=== PATIENT | female | born 1995 | race Caucasian/White ===

== ENCOUNTER 2020-04-23 13:44 | Emergency (ER) | payer OTHER ==
[2020-04-23 14:19] VITALS: BMI 29.2
[2020-04-23 15:23] LABS: BASO % 0.3 % (0-2.0); EOS % 0.3 % (0-4.5); HEMATOCRIT 35.4 % (32.4-45.2); HEMOGLOBIN 11.8 GM/dL (10.7-15.3); LYMPH % 31.6 % (8-40); MCH 27.8 pg (25.7-33.7); MCHC 33.3 g/dl (32.0-36.0); MEAN CELL VOLUME 83.7 fl (80-96); MEAN PLT VOLUME 8.3 fl (7.5-11.1); MONO % 8.8 % (3.8-10.2); PLATELET COUNT 318 K/MM3 (134-434); RBC 4.23 M/mm3 (3.60-5.2); RDW 15.6 % (11.6-15.6); WHITE BLOOD COUNT 6.8 K/mm3 (4.0-10.0)
[2020-04-23 15:30] LABS: EPI CELLS >36 /uL (0-25.1); HYALINE CASTS 6 /uL (0-3.1); URINE APPEARANCE CLOUDY; URINE BACTERIA 3855 /uL (0-1359); URINE BILIRUBIN NEGATIVE (NEGATIVE); URINE COLOR YELLOW; URINE GLUCOSE (UA) NEGATIVE (NEGATIVE); URINE KETONE 3+ (NEGATIVE); URINE LEUK ESTERASE 1+ (NEGATIVE); URINE NITRITE NEGATIVE (NEGATIVE); URINE PROTEIN TRACE (NEGATIVE); URINE RBC 14 /uL (0-23.9); URINE UROBILINOGEN 0.2 mg/dL (0.2-1.0); URINE WBC 31 /uL (0-25.8)
[2020-04-23 15:42] LABS: BLOOD UREA NITROGEN 8.3 mg/dL (7-18); CALCIUM 9.5 mg/dL (8.5-10.1)
[2020-04-23 15:46] LABS: CREATININE 0.6 mg/dL (0.55-1.3)
[2020-04-23 15:47] LABS: BILIRUBIN,TOTAL 0.4 mg/dL (0.2-1); TOT PROT 7.4 g/dl (6.4-8.2)
[2020-04-23 18:18] VITALS: BP 126/77; PULSE 82; TEMP 98.2
== END 2020-04-23 18:10 | disposition home or self-care (01) ==
LOC: JER 13:44
DX: O26.851 Spotting complicating pregnancy, first trimester (principal); N30.00 Acute cystitis without hematuria; Z3A.08 8 weeks gestation of pregnancy
CPT/HCPCS: 36415; 76817-TC; 80053; 81003; 84702; 85025; 86850; 86900; 86901; 87086; 99284-25

== ENCOUNTER 2020-11-20 09:41 | Emergency (ER) | payer OTHER ==
[2020-11-20 09:48] VITALS: BMI 30.7
[2020-11-20 12:48] VITALS: TEMP 98
[2020-11-20 14:56] VITALS: BP 128/82; PULSE 89
== END 2020-11-20 13:10 | disposition home or self-care (01) ==
LOC: JER 09:41
DX: O26.893 Other specified pregnancy related conditions, third trimester (principal); R10.30 Lower abdominal pain, unspecified; Z3A.36 36 weeks gestation of pregnancy
CPT/HCPCS: 99283-25

== ENCOUNTER 2022-02-02 00:17 | Emergency (ER) | payer OTHER ==
[2022-02-02 00:37] VITALS: BP 120/80; PULSE 81; RESP 20; TEMP 98.2; BMI 28.7
[2022-02-02] MEDS ORDERED: ACETAMINOPHEN 325 MG TABLET (FP) PO ONE (02:45)
[2022-02-02] MEDS ORDERED: ACETAMINOPHEN 325 MG TABLET (FP) ONE (02:49)
[2022-02-02 03:17] LABS: BASO % 0.8 % (0-2.0); EOS % 1.1 % (0-4.5); HEMATOCRIT 33.7 % (32.4-45.2); HEMOGLOBIN 11.2 GM/dL (10.7-15.3); LYMPH % 44.7 % (8-40); MCH 27.4 pg (25.7-33.7); MCHC 33.4 g/dl (32.0-36.0); MEAN CELL VOLUME 82.1 fl (80-96); MONO % 6.5 % (3.8-10.2); NEUT % 46.9 % (42.8-82.8); PLATELET COUNT 304 10^3/uL (134-434); RDW 14.9 % (11.6-15.6); WHITE BLOOD COUNT 7.8 K/mm3 (4.0-10.0)
[2022-02-02 03:40] LABS: CALCIUM 9.7 mg/dL (8.5-10.1)
[2022-02-02 03:41] LABS: ALBUMIN 4.1 g/dl (3.4-5.0); BLOOD UREA NITROGEN 14.6 mg/dL (7-18)
[2022-02-02 03:44] LABS: CREATININE 0.7 mg/dL (0.55-1.3)
[2022-02-02 03:45] LABS: BILIRUBIN,TOTAL 0.4 mg/dL (0.2-1); TOT PROT 7.5 g/dl (6.4-8.2)
== END 2022-02-02 04:00 | disposition home or self-care (01) ==
LOC: JER 00:17
DX: R07.89 Other chest pain (principal)
CPT/HCPCS: 36415; 71046-TC-FY; 80053; 85025; 93005; 93010; 99285-25